=== PATIENT | female | born 1960 | race Caucasian/White ===

== ENCOUNTER → 2021-10-09 | Emergency (ER) | payer OTHER ==
[~2021-10-09] VITALS: Ht 162.6 cm; Wt 63.5 kg
[~2021-10-09] MED LIST: CARI350T PO; LISINOPRIL (20MG) 20 MG TABLET ONE; LISINOPRIL (20MG) 20 MG TABLET PO SCH
--- NOTE | 2021-10-09 21:04 | NUR ---
BIBSELF C/O HIGH BP AT HOME, FEELING DIZZY WITH SHANE X 3 DAYS. PT A/O X 4, RR EVEN AND UNLABORED, NO SOB NOTED. PT TO ER BED 03. PT CONNECTEDT TO MONITORS.
[2021-10-09 21:32] VITALS: BP 156/70
--- NOTE | 2021-10-09 21:32 | NUR ---
Patient discharged to home in stable condition. Written and verbal after care instructions given. Patient verbalizes understanding of instruction. Addendum: 10/09/21 at 2132 by DINA Patient discharged to home in stable condition. Written and verbal after care instructions given. Patient verbalizes understanding of instruction. Patient ambulatory with a steady gait
== END | disposition home or self-care (01) ==
LOC: ER 20:38
DX: M54.31 Sciatica, right side (principal); I10 Essential (primary) hypertension; Z79.899 Other long term (current) drug therapy